=== PATIENT | female | born 1965 | race Caucasian/White ===

== ENCOUNTER 2020-12-01 13:47 | Emergency (ER) | payer BC ==
[~2020-12-01] VITALS: Ht 172.7 cm; Wt 68.0 kg
[2020-12-01 14:33] LABS: ABSOLUTE NEUTROPHILS 8.4 thou/uL (1.4-8.2); BASOPHILS 0.4 % (0.0-2.0); EOSINOPHILS 0.6 % (0.0-3.0); HEMOGLOBIN 14.7 gm/dL (12.0-15.0); LYMPHOCYTES 12.3 % (24.0-44.0); MCH 30.7 pg (26.0-34.0); MCHC 34.2 g/dL (28.0-37.0); MCV 89.9 fL (80.0-100.0); MONOCYTES 8.1 % (1.0-8.0); PLATELET COUNT 416 thou/uL (150-400); POLYS 78.6 % (36.0-66.0); RBC 4.78 mil/uL (4.20-5.00); RDW 13.9 % (10.5-14.5); WBC 10.6 thou/uL (4.0-11.0)
[2020-12-01 14:35] LABS: URINE BLOOD 1+ (Negative); URINE CLARITY CLOUDY; URINE COLOR YELLOW; URINE GLUCOSE-RANDOM* NEGATIVE (Negative); URINE KETONES 2+ (Negative); URINE NITRITE-REFLEX NEGATIVE (Negative); URINE PROTEIN (DIPSTICK) 2+ (Negative); URINE SPECIFIC GRAVITY >= 1.030 (1.005-1.035)
[2020-12-01 14:38] LABS: ICTOTEST (BILI CONFIRMATORY) Negative (Negative); URINE BILIRUBIN NEGATIVE (Negative); URINE LEUKOCYTES-REFLEX 1+ (Negative)
[2020-12-01 14:49] LABS: CRYSTALS None Seen /LPF (None Seen); HYALINE CASTS 0-3 Few /LPF (None Seen); MUCUS >6 Heavy strn/LPF (None Seen); SQUAMOUS >10 Many /LPF (0-3)
[2020-12-01 14:53] LABS: BACTERIA-REFLEX >30 Many /HPF (None Seen); URINE RBC 1-2 Rare /HPF (NONE SEEN); URINE WBC-REFLEX 6-15 Few /HPF (0-5)
[2020-12-01 15:11] LABS: CALCIUM 9.2 mg/dL (8.5-10.1); CREATININE 0.9 mg/dL (0.6-1.0); POTASSIUM 4.8 mmol/L (3.5-5.1)
[2020-12-01 15:17] LABS: ALBUMIN 3.7 g/dL (3.4-5.0); DIRECT BILIRUBIN 0.2 mg/dL (<0.1-0.2); TOTAL BILIRUBIN 0.9 mg/dL (0.2-1.0); TOTAL PROTEIN 7.7 g/dL (6.4-8.2)
[2020-12-01] MEDS ORDERED: ZOFRAN ODT4 MG PO (15:38)
[2020-12-01] MEDS ORDERED: CEPHALEXIN500 MG PO (15:38)
[2020-12-01 16:04] VITALS: BP 141/76
--- NOTE | 2020-12-01 17:25 | EKG ---
[address] [address] [place] [address] ELECTROCARDIOGRAM REPORT Name: JOSE DHALIWAL Room #: [facility] Aaron#: [id number] Admission: 12/01/20 Attend Phys: Discharge: 12/01/20 Date of : 69 Report #: [id number] [facility] ED Test Date: 2020-12-01 Test Time: 14:35:58 Pat Name: JOSE DHALIWAL Department: Room: Gender: F Body Straightener: rin : 1965 Requested By: Amanda White Order Number: [id number] MD: Dionicio Kaye Measurements Intervals [place] Rate: 86 P: 63 DC: 190 QRS: -2 QRSD: 95 T: 34 QT: 344 QTc: 412 Interpretive Statements Sinus rhythm Low voltage Poor R wave progression Artifact in lead(s) III,aVL,aVF,V1 No previous ECG available for comparison Electronically Signed On 12-01-2020 17:25:13 CDT by Dionicio Kaye [email or web address] <ELECTRONICALLY SIGNED> By: Dionicio Kaye MD, [facility] 12/01/20 1725 1435 1435 Dionicio Kaye MD, FACC /EPI
== END 2020-12-01 16:12 | disposition home or self-care (01) ==
LOC: ER 13:47
PROVIDERS: Emergency Medicine
DX: E86.0 Dehydration (principal); N39.0 Urinary tract infection, site not specified; Z87.891 Personal history of nicotine dependence